=== PATIENT | male | born 1965 | race Asian ===

== ENCOUNTER → 2017-12-18 | Outpatient (CLI) | payer SELFPAY | END | disposition home or self-care (01) | LOC: RAD 09:34 | PROVIDERS: ATTEND Physical Medicine & Rehabilitation Pain Medicine | DX: Z11.1 Encounter for screening for respiratory tuberculosis (principal); R76.11 Nonspecific reaction to tuberculin skin test without active tuberculosis | CPT/HCPCS: 71045 ==

== ENCOUNTER 2019-09-09 09:38 | Emergency (ER) | payer SELFPAY ==
[~2019-09-09] VITALS: Ht 182.9 cm; Wt 99.8 kg
--- NOTE | 2019-09-09 10:23 | NUR ---
Patient discharged to home in stable condition with brisk steady gait. Written and verbal after care instructions given to patient by MD himself. Patient verbalized understanding & compliance of instructions.
== END 2019-09-09 10:23 | disposition home or self-care (01) ==
LOC: ER 09:38
DX: J06.9 Acute upper respiratory infection, unspecified (principal)
CPT/HCPCS: 87400; A4663